=== PATIENT | female | born 1940 | race Two or more races ===

== ENCOUNTER 2018-08-15 20:45 | Emergency (ER) | payer OTHER ==
[~2018-08-15] VITALS: Ht 157.5 cm; Wt 63.0 kg
== END 2018-08-15 23:14 | disposition home or self-care (01) ==
LOC: ER 20:45
DX: M25.512 Pain in left shoulder (principal); M54.2 Cervicalgia

== ENCOUNTER 2021-11-21 10:27 | Outpatient (CLI) | payer OTHER | END 2021-11-21 10:36 | disposition home or self-care (01) | LOC: SONOGRAMA 10:27 | PROVIDERS: ATTEND Surgery Surgical Oncology | DX: E04.1 Nontoxic single thyroid nodule (principal) ==

== ENCOUNTER 2023-08-05 11:27 | Outpatient (CLI) | payer OTHER | END 2023-08-05 11:30 | disposition home or self-care (01) | LOC: RAD 11:27 | PROVIDERS: ATTEND Internal Medicine | DX: N63.21 Unspecified lump in the left breast, upper outer quadrant (principal); N63.11 Unspecified lump in the right breast, upper outer quadrant; Z12.31 Encounter for screening mammogram for malignant neoplasm of breast ==